=== PATIENT | female | born 2005 | race African-American/Black ===

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

== ENCOUNTER 2024-05-09 09:24 | Emergency (ER) | payer OTHER, SELFPAY ==
[2024-05-09 09:35] VITALS: BP 130/78; PULSE 95; RESP 18; TEMP 36.8; O2SAT 100
[2024-05-09 10:32] LABS: Strep Group A RT-PCR NOT DETECTED (Negative)
[2024-05-09 10:44] LABS: Influenza A QL RT-PCR Negative (Negative); Influenza B QL RT-PCR Negative (Negative); RSV RNA, RT-PCR Negative (Negative); SARS-CoV-2 RNA PCR Negative (Negative)
--- NOTE | 2024-05-09 11:07 | ED.GENADULT ---
HPI - General Adult General Chief complaint: Unspecified Stated complaint: sore throat Time Seen by Provider: 05/09/24 09:42 Source: patient Mode of arrival: ambulatory Limitations: no limitations History of Present Illness HPI narrative: This is a 18-year-old female that presents to the emergency department for sore throat. Ongoing intermittently over the last couple of weeks. Reports she has been treated with 2 rounds of antibiotics for strep. Reports symptoms started again 2 days ago. Reports sore throat, cough, ear pain. Denies fevers. Related Data Allergies Allergy/AdvReac Type Severity Reaction Status Date / Time No Known Allergies Allergy Verified 05/09/24 09:24 Review of Systems Review of Systems: CONSTITUTIONAL: Denies fever ENT: Reports sore throat, otalgia. RESPIRATORY: Reports cough All systems reviewed & are unremarkable except as noted in HPI and below PMFSH Past Medical History Medical History (Updated 05/09/24 @ 12:09 by Romana Stone PA-C) No active medical problems Social History Social History (Updated 05/09/24 @ 11:09 by Romana Stone PA-C) Substance use: never Exam Narrative: GENERAL: Well-appearing, well-nourished, and in no acute distress. HEAD: Normocephalic, atraumatic. EYES: PERRLA and EOMI. ENT: Nares clear, no rhinorrhea or epistaxis. Mucous membranes moist. Oropharynx with mild tonsillar hypertrophy and exudate, no other lesions. Bilateral TMs pearly orozco non-bulging NECK: Supple. No adenopathy or masses. CHEST: Clear to auscultation. No respiratory distress. No wheezes rales or rhonchi HEART: Regular rate and rhythm. No murmur heard. Normal peripheral pulses. EXTREMITIES: Normal range of motion. No edema. SKIN: Warm, dry, no rash. NEURO: No focal deficits. Alert and oriented x3. PSYCH: Normal mood and affect Course Course Emergency Course: Patient updated on her workup and agrees with plan of care Vital Signs Vital signs: Vital Signs Temperature 98.2 F 05/09/24 09:35 Pulse Rate 95 05/09/24 09:35 Respiratory Rate 18 05/09/24 09:35 Blood Pressure 130/78 05/09/24 09:35 Pulse Oximetry 100 05/09/24 09:35 Oxygen Delivery Room Air 05/09/24 09:35 Temperature 98.2 F 05/09/24 09:35 Pulse Rate 95 05/09/24 09:35 Respiratory Rate 18 05/09/24 09:35 Blood Pressure 130/78 05/09/24 09:35 Pulse Oximetry 100 05/09/24 09:35 Oxygen Delivery Room Air 05/09/24 09:35 Medical Decision Making MDM Narrative Medical decision making narrative: Patient presents to the emergency department for cold symptoms present over the last 2 days. Reporting sore throat, cough, ear pain. She is afebrile and nontoxic appearing. Lungs are clear on exam. Oxygen saturations 100% on room air. Influenza, RSV, COVID, strep, mono tests are negative. Patient updated on her workup. Instructed on further care a viral infection. She will be given follow up with ENT as she was endorsing recurrent strep infections. She was given warnings to return to the ER Vital Signs Vital Signs: Vital Signs Temperature 98.2 F 05/09/24 09:35 Pulse Rate 95 05/09/24 09:35 Respiratory Rate 18 05/09/24 09:35 Blood Pressure 130/78 05/09/24 09:35 Pulse Oximetry 100 05/09/24 09:35 Oxygen Delivery Room Air 05/09/24 09:35 Temperature 98.2 F 05/09/24 09:35 Pulse Rate 95 05/09/24 09:35 Respiratory Rate 18 05/09/24 09:35 Blood Pressure 130/78 05/09/24 09:35 Pulse Oximetry 100 05/09/24 09:35 Oxygen Delivery Room Air 05/09/24 09:35 Lab Data Lab results reviewed: Yes I reviewed the patient's lab results. Labs: Lab Results 05/09/24 05/09/24 Range/Units 10:02 11:09 Monoscreen Negative (Negative) Influenza A (RT-PCR) Negative (Negative) Influenza B (RT-PCR) Negative (Negative) RSV (RT-PCR) Negative (Negative) SARS-CoV-2 RNA (RT-PCR) Negative (Negative) Group A Strep (PCR) Not detected (Negative) Critical Care Time Critical Care Time Critical Care Time: No Discharge Plan Discharge Clinical Impression: Acute viral pharyngitis Patient Disposition: Home, Self-Care Condition: Stable Instructions: Pharyngitis (ED) Additional Instructions: Return to the emergency department for worsening symptoms, or any other concerns Remain well-hydrated, get plenty of rest. Take Tylenol or Motrin [id number] for pain as needed. Flonase for nasal congestion. Zyrtec for runny nose. Lozenges or Chloraseptic spray for sore throat. Follow up with ENT Patient Language: [place] Citizen Prescriptions: No Action ondansetron 4 mg tablet,disintegrating 4 mg PO Q8H PRN (Reason: nausea and vomiting) Qty: 10 0RF nitrofurantoin monohyd/m-cryst [Macrobid] 100 mg capsule 100 mg PO Q12H 5 Days Qty: 10 0RF Rx Instructions: must administer with a meal/food ondansetron 4 mg tablet,disintegrating 4 mg PO Q8H PRN (Reason: nausea and vomiting) Qty: 14 0RF famotidine 10 mg tablet 10 mg PO DAILY Qty: 20 0RF Follow-up/Referrals: El Kapoor MD [Physician] - UNKNOWN,DOCTOR [Primary Care Provider] -
[2024-05-09 12:03] LABS: Monoscreen Negative (Negative); Negative Monotest Control Negative (Negative); Positive Monotest Control Positive (Positive)
[2024-05-09 12:17] VITALS: RESP 18
== END 2024-05-09 12:24 | disposition home or self-care (01) ==
PROVIDERS: Emergency Medicine; Emergency Provider Physician Assistant
DX: J02.9 Acute pharyngitis, unspecified (principal); Z20.822 Contact with and (suspected) exposure to COVID-19
CPT/HCPCS: 36415; 86308; 87637; 87651; 99283